=== PATIENT | male | born 1980 | race Caucasian/White ===

== ENCOUNTER 2022-02-05 15:29 | Emergency (ER) | payer OTHER ==
[2022-02-05 16:01] VITALS: BP 144/87; PULSE 67; RESP 16; TEMP 98
[2022-02-05] MEDS ORDERED: LIDOCAINE 1% INJ 10MG/ML (20 ML MDV) SQ ONE (16:10)
--- NOTE | 2022-02-05 16:10 | ED ---
General Adult HPI - General Chief complaint: Extremity Injury, Upper Stated complaint: IHS - Right Middle Finger Injury Time Seen by Provider: 02/05/22 16:04 Source: family, RN notes reviewed, old records reviewed Mode of arrival: ambulatory Limitations: no limitations - History of Present Illness Initial comments: 41-year-old male presents to the emergency room with laceration to his right middle finger ulnar aspect. Approximately 2 cm. He states that his tetanus shot is up-to-date. He has full range of motion. He denies any other injuries. -: hour(s) (2) Severity scale (1-10): 5 Quality: other (throbbing) Consistency: constant Improves with: none Worsens with: none Associated Symptoms: denies other symptoms Treatments Prior to Arrival: none - Related Data Previous Rx's Medication Instructions Recorded Cephalexin [Keflex] 500 mg PO Q6HR 7 Days #28 cap 02/05/22 Allergies Allergy/AdvReac Type Severity Reaction Status Date / Time No Known Allergies Allergy Verified 02/05/22 16:28 Review of Systems ROS Statement: Those systems with pertinent positive or pertinent negative responses have been documented in the HPI. ROS Other: All systems not noted in ROS Statement are negative. Past Medical History Past Medical History: No Reported History History of Any Multi-Drug Resistant Organisms: None Reported Past Surgical History: No Surgical Hx Reported Past Psychological History: No Psychological Hx Reported Smoking Status: Never smoker Past Alcohol Use History: None Reported Past Drug Use History: None Reported General Exam Limitations: no limitations General appearance: alert, in no apparent distress Respiratory exam: Absent: respiratory distress, accessory muscle use Cardiovascular Exam: Present: regular rate Right Hand Wrist exam: Present: normal inspection, full ROM, tenderness, laceration (palmar aspect of middle finger approx 2cm laceration DIP to PIP). Absent: deformity, crepitus, dislocation, amputation, nail avulsion Neuro motor exam: Present: wrist extension intact, thumb opposition intact, thumb IP flexion intact, thumb adduction intact, fingers 2-5 abduction intact Neurosensory exam: Present: radial nerve intact, ulnar nerve intact, median nerve intact Vascular: Present: normal capillary refill, radial pulse. Absent: vascular compromise Neurological exam: Present: alert, oriented X3 Psychiatric exam: Present: normal affect, normal mood Skin exam: Present: warm, dry, normal color. Absent: cyanosis, diaphoretic, petechiae, pallor Course Vital Signs 02/05/22 15:57 Temperature 98 F Pulse Rate 67 Respiratory 16 Rate Blood Pressure 144/87 O2 Sat by Pulse 98 Oximetry Procedures - Laceration Laceration #1 Consent Obtained: verbal consent Indication: laceration Site: hand (middle finger) Description: linear Depth: simple, single layer Anesthetic Used: lidocaine 1% Anesthesia Technique: nerve block (digital) Pre-repair: irrigated extensively (200cc saline) Type of Sutures: nylon Size of Sutures: 4-0 Number of Sutures: 6 Technique: simple, interrupted Patient Tolerated Procedure: well Medical Decision Making - Medical Decision Making Patient sustained a crush injury at work this right middle finger. He states his tetanus shot is up-to-date. X-ray shows mildly displaced fracture of the right third distal phalanx with multiple fragments. There is extension of the fracture lines into the dorsal aspect of the third distal interphalangeal joint. Wound was closed with six 4.0 sutures after copious irrigation. Nonadhering dressing and bulky dressing applied with aluminum splint. Patient was placed on Keflex and given referral to orthopedics Dr. Perdomo. He does have full range of motion with flexion and extension. Capillary refill less than 2 seconds. Is instructed to return to the emergency room with any new or concerning symptoms including increased pain, fever or signs of infection. Discussed with Dr. Stinson. Disposition Clinical Impression: Finger fracture, right, Laceration Disposition: HOME SELF-CARE Condition: Good Instructions (If sedation given, give patient instructions): Laceration (ED), Finger Fracture (ED) Additional Instructions: Take antibiotics as prescribed. Keep the wound clean and dry. Change the dressing daily starting tomorrow. Follow-up with orthopedics next week. Return to the emergency room with any new or concerning symptoms. Prescriptions: Cephalexin [Keflex] 500 mg PO Q6HR 7 Days #28 cap Is patient prescribed a controlled substance at d/c from ED?: No Referrals: Andres Jackson MD [Primary Care Provider] - 1-2 days Stella Perdomo DO [Doctor of Osteopathic Medicine] - 1-2 days Time of Disposition: 17:03
[2022-02-05] MEDS ORDERED: IBUPROFEN 600 MG TAB PO STA (16:12)
[2022-02-05] MEDS ORDERED: CEPHALEXIN 500 MG CAP PO STA (17:03)
--- NOTE | 2022-02-05 17:10 | XR ---
EXAMINATION TYPE: XR finger RT DATE OF EXAM: 02/05/2022 COMPARISON: None available INDICATION: Crushing injury TECHNIQUE: 3 views of the right third finger FINDINGS: Comminuted mildly displaced fracture of the right third distal phalanx mainly at its base with multip le bone fragments and surrounding soft tissue swelling. Extension of the fracture lines int o the dorsal aspect of the third distal interphalangeal joint. Suspected nondisplaced fractures of the head of the third middle phalanx. There is likely a skin lace ration at the radial aspect of the third finger distally. Suspected mild subluxation of the third dis liana phalanx in relation to the middle phalanx. Questionable chronic healed fracture of the fifth meta carpal bone. IMPRESSION: Fractures and soft tissue injury of the third finger as described above.
== END 2022-02-05 17:23 | disposition home or self-care (01) ==
LOC: EC 15:29
DX: S62.632A Displaced fracture of distal phalanx of right middle finger, initial encounter for closed fracture (principal); W23.1XXA Caught, crushed, jammed, or pinched between stationary objects, initial encounter
CPT/HCPCS: 99283; 12001; 73140; J2001